=== PATIENT | male | born 1940 ===

== ENCOUNTER 2018-05-20 07:15 | Day surgery (SDC) | payer OTHER ==
[~2018-05-20 07:15] MED LIST: CANDESARTAN-HC1 EAC1 PO; CLOTRIMAZOLE/BE15 GM; FENOFIBRATE145 MG PO; PROSCAR5 MG PO; RAMIPRIL10 MG PO; SIMVASTATIN20 MG PO; TAMS0.4C PO; ZETIA10 MG PO
== END 2018-05-20 15:20 | disposition home or self-care (01) ==
LOC: CIR.AMB 07:15
DX: M51.26 Other intervertebral disc displacement, lumbar region (principal); M51.27 Other intervertebral disc displacement, lumbosacral region

== ENCOUNTER 2019-05-01 08:10 | Outpatient (CLI) | payer OTHER | END 2019-05-01 08:26 | disposition home or self-care (01) | LOC: SONOGRAMA 08:10 | DX: R59.9 Enlarged lymph nodes, unspecified (principal) ==

== ENCOUNTER 2021-02-06 08:30 | Outpatient (CLI) | payer OTHER | END 2021-02-06 08:35 | disposition home or self-care (01) | LOC: SONOGRAMA 08:30 | PROVIDERS: ATTEND Pathology Anatomic Pathology & Clinical Pathology | DX: C07 Malignant neoplasm of parotid gland (principal) ==